=== PATIENT | female | born 1980 | race Caucasian/White ===

== ENCOUNTER → 2023-12-25 10:16 | Outpatient (CLI) | payer OTHER, SELFPAY ==
--- NOTE | 2023-12-25 10:18 | DI.US.S_ITS ---
LIMITED ULTRASOUND OF RIGHT BREAST: 12/25/2023 CLINICAL: Patient returns today to evaluate a focal asymmetry in the right breast. Comparison is made to exams dated: 12/25/2023 mammogram - [facility] and [facility] Real-time ultrasound of the right breast 4-6 o'clock region was performed. Alarcon scale images of the real-time examination were reviewed. No significant abnormalities were seen sonographically in the right breast. Specifically, no finding to correspond to the patient's right breast 5:00 mammographic abnormality. IMPRESSION: PROBABLY BENIGN No sonographic correlate to the incidental mammogram finding. A follow-up mammogram and possible ultrasound in 6 months is recommended to demonstrate stability, particularly given this is the patient's baseline exam. Findings and recommendations were conveyed to the patient at time of exam. This exam was interpreted at Station ID: [id number]. Electronically Signed By: Liliya barcenas/:12/25/2023 14:27:01 letter sent: Followup Recommended ACR BI-RADS Category 3: Probably Benign
--- NOTE | 2023-12-25 10:18 | DI.MG.S_ITS ---
UNILATERAL RIGHT DIGITAL DIAGNOSTIC MAMMOGRAM 3D/2D WITH ADDITIONAL VIEWS: 12/25/2023 CLINICAL: Additional evaluation requested from prior study. Comparison is made to exam dated: 11/14/2023 mammogram - outside facility. The breasts are heterogeneously dense, which may obscure small masses (category c / 51-75% glandular tissue). With focal spot compression, and additional views, the abnormality seen in the right breast at 3 o'clock on screening mammography resolves. There is a possible 5 mm oval equal density focal asymmetry with an indistinct margin in the right breast at 5 o'clock anterior depth. This is not seen in additional views. No other significant masses or calcifications are seen in the breast. IMPRESSION: INCOMPLETE: NEED ADDITIONAL IMAGING EVALUATION Resolution of screening mammography abnormality with additional views. This is most consistent with overlapping glandular tissue. The possible 5 mm focal asymmetry in the right breast remains indeterminate. An ultrasound is recommended. This was performed immediately following this exam. Based on the Tyrer Cuzick model (a risk assessment model) the patient's lifetime risk is 15.5% and her 10 year risk is 2.7%. According to the ACR, ACS, and NCCN guidelines, an annual breast MRI exam along with mammogram is recommended if the patient's lifetime risk is 20% or greater. This exam was interpreted at Station ID: [id number]. NOTE: For mammograms, a report in lay terms will be sent to the patient. Approximately 15% of breast malignancies will not be visualized mammographically. In the management of a palpable breast mass, a negative mammogram must not discourage biopsy of a clinically suspicious lesion. Electronically Signed By: Liliya barcenas/:12/25/2023 14:23:59 letter sent: Additional Imaging Needed ACR BI-RADS Category 0: Incomplete: Need Additional Imaging Evaluation
== END ==
PROVIDERS: PCP Physician Assistant Medical; Referring Provider Physician Assistant Medical; Visit Provider Physician Assistant Medical
DX: R92.8 Other abnormal and inconclusive findings on diagnostic imaging of breast (principal); R92.333 Mammographic heterogeneous density, bilateral breasts
CPT/HCPCS: 76642; 77065; G0279

== ENCOUNTER → 2024-07-16 13:27 | Outpatient (CLI) | payer OTHER, SELFPAY ==
--- NOTE | 2024-07-16 13:28 | DI.MG.S_ITS ---
MM diagnostic mammo unilat RT: 07/16/2024. BI-RADS: 3 CLINICAL: 44-year old female for right diagnostic mammogram that is a follow-up to ultrasound, right on 12/25/2023. Tyrer-Cuzick lifetime risk of 18.9%. No personal or first-degree family history of breast cancer. Current reported family history of breast cancer: maternal aunt. PRIOR EXAMS 12/25/2023. MAMMOGRAPHY TECHNIQUE: 2D and 3D (tomosynthesis) digital mammographic views obtained, with additional images as needed for full coverage. Current study was also evaluated with a Computer Aided Detection (CAD) system. DENSITY Right: C. The breasts are heterogeneously dense, which may obscure small masses. MAMMOGRAPHY FINDINGS Right: Inner at 3:00, Posterior depth: There is a focal asymmetry present. This finding has been stable since outside baseline screening mammogram in October 2023. No prior ultrasound correlate identified. Finding is probably benign and represents asymmetric fibroglandular tissue. IMPRESSION: Right (Asymmetry): Inner at 3:00, Posterior depth * Probably Benign. RECOMMENDATIONS Right: Inner at 3:00, Posterior depth * Further evaluation with diagnostic mammography to demonstrate 1 year stability. When the patient returns for short-term unilateral followup, a mammogram for the contralateral breast will also be due. COMMENTS: Findings and recommendations were conveyed to the patient during today's evaluation. OVERALL ASSESSMENT CATEGORY BI-RADS-3: Probably Benign. ELECTRONICALLY SIGNED: Barbara Allen M.D. on 07/16/2024 at 02:13:31 PM PT Interpreting Station ID: [id number]
== END ==
PROVIDERS: PCP Physician Assistant Medical; Referring Provider Physician Assistant Medical; Visit Provider Physician Assistant Medical
DX: R92.8 Other abnormal and inconclusive findings on diagnostic imaging of breast (principal); R92.333 Mammographic heterogeneous density, bilateral breasts
CPT/HCPCS: 77065; G0279